=== PATIENT | male | born 1985 | race Two or more races ===

== ENCOUNTER 2017-09-09 13:17 | Emergency (ER) | payer MEDICAID ==
[~2017-09-09] VITALS: Ht 180.3 cm; Wt 90.7 kg
[2017-09-09] MEDS ORDERED: SERTRALINE HCL100 MG PO (13:45)
[2017-09-09] MEDS ORDERED: ZYPREXA5 MG ORAL (13:45)
[2017-09-09] MEDS ORDERED: ceFAZolin 1gm/50ml Premix 50 ML IV ONE (14:00)
[2017-09-09] MEDS ORDERED: Ketorolac 30mg Inj IV ONE (14:00)
[2017-09-09 14:10] VITALS: BP 111/65
[2017-09-09] MEDS ORDERED: ceFAZolin 1gm in D5W 55ml IVP ONE (15:00)
[2017-09-09] MEDS ORDERED: IBUPROFEN600 MG ORAL (16:00)
[2017-09-09] MEDS ORDERED: BENADRYL25 MG ORAL (16:00)
[2017-09-09] MEDS ORDERED: BACTRIM DS TAB1 EAC1 ORAL (16:00)
[2017-09-09] MEDS ORDERED: CEPHALEXIN500 MG ORAL (16:00)
[2017-09-09] MEDS ORDERED: DiphenhydrAMINE 50mg/ml Inj IVP ONE (16:00)
[2017-09-09 17:52] VITALS: BP 111/65
--- NOTE | 2017-09-09 19:45 | Emergency Room Report ---
History of Present Illness General Chief Complaint: Laceration Source: Patient Present Illness HPI The patient is a 32-year-old male presenting for possible skin infection. The patient has superficial self-inflicted wounds to both arms and redness has now developed around them. The patient is currently a resident at the rehabilitation facility and is accompanied by his therapist. The patient was seen at another emergency department yesterday but refused antibiotics. He is now ready to have treatment. Pain is an 8/10 dull ache to both forearms and does not radiate. Worse with touch. He denies any discharge from the areas. He denies any fever or chills. He states that he is in a better place now and denies any suicidal ideation. Allergies: Coded Allergies: No Known Allergies (Unverified , 09/09/17) Patient History Past Medical History: see triage record Pertinent Family History: none Reviewed Nursing Documentation: PMH: Agreed, PSxH: Agreed Review of Systems All Other Systems: negative except mentioned in HPI Physical Exam Vital Signs Date Time Temp Pulse Resp B/P (MAP) Pulse Ox O2 Delivery O2 Flow Rate FiO2 09/09/17 13:39 97.9 91 20 111/65 97 Sp02 EP Interpretation: reviewed, normal General Appearance: no apparent distress, alert, GCS 15, non-toxic Head: normocephalic, atraumatic Eyes: bilateral eye normal inspection, bilateral eye PERRL ENT: hearing grossly normal, normal pharynx, no angioedema, normal voice Musculoskeletal: back normal, gait/station normal, normal range of motion, tender - bilat forearms Neurologic: alert, oriented x3, responsive, motor strength/tone normal, sensory intact, speech normal Psychiatric: judgement/insight normal, memory normal, mood/affect normal, no suicidal/homicidal ideation Skin: other - erythema to bilat forearms , abrasions - bilat forearms Lymphatic: no adenopathy Medical Decision Making PA Attestation Dr. Woodward is my supervising physician. Patient management was discussed with my supervising physician Diagnostic Impression: Primary Impression: Cellulitis Qualified Codes: L03.119 - Cellulitis of unspecified part of limb ER Course The patient is a 32-year-old male presenting for possible skin infection. Differential diagnoses considered but not limited to: abscess, cellulitis, abrasion, among others PE: Afebrile. NAD Bilateral forearms have linear superficial abrasions which are self-inflicted. These are healing well. There is surrounding erythema as well as some edema. Tenderness to palpation The patient is given IV antibiotics and will be discharged home with prescription for antibiotics. She is accompanied by his therapist. He will go back to his rehabilitation facility where he is under supervision. The therapist was told to have the patient be seen at [facility]. Both the patient and therapist agreed. ER precautions are given Last Vital Signs Date Time Temp Pulse Resp B/P (MAP) Pulse Ox O2 Delivery O2 Flow Rate FiO2 09/09/17 17:52 97.9 20 111/65 97 09/09/17 13:39 91 Status: improved Disposition: HOME, SELF-CARE Condition: Improved Scripts Trimethoprim/Sulfamethoxazole 160/800* (BACTRIM DS TABLET*) 1 Each Tablet 1 TAB ORAL TWICE A DAY, #14 TAB Prov: DANIELLA ALMEIDA P.A. 09/09/17 Cephalexin* (KEFLEX*) 500 Mg Capsule 500 MG ORAL EVERY 12 HOURS, #14 CAP 0 Refills Prov: TERZIANDANIELLA P.A. 09/09/17 Diphenhydramine Hcl* (BENADRYL*) 25 Mg Capsule 25 MG ORAL Q6H Y for Itching, #15 CAP Prov: TERZIAN,DANIELLA P.A. 09/09/17 Ibuprofen* (MOTRIN*) 600 Mg Tablet 600 MG ORAL Q8H Y for For Pain, #30 TAB 0 Refills Prov: TERZIANBALTAZARY P.A. 09/09/17 Patient Instructions: Cellulitis Additional Instructions: I discussed my findings with the patient and therapist. All questions and concerns have been answered. Treatment and medication compliance have been addressed. Return to ER if symptoms worsen, redness spreads, new symptoms arise such as fever, or if needed for any reason. Patient verbalized understanding of discharge instructions. DANIELLA ALMEIDA Sep 09, 2017 19:45
== END 2017-09-09 17:53 | disposition home or self-care (01) ==
LOC: EMR 14:05
DX: L03.114 Cellulitis of left upper limb (principal); L03.113 Cellulitis of right upper limb
CPT/HCPCS: 96361; 96365; 96375; 99284; J0690; J1200; J1885